=== PATIENT | male | born 1945 | race Caucasian/White ===

== ENCOUNTER 2023-10-29 16:23 | Outpatient (CLI) | payer MEDICARE, BC | END 2023-10-29 23:59 | disposition critical access hospital (66) | LOC: EMS 16:23 | DX: R53.1 Weakness (principal); R20.0 Anesthesia of skin; I49.9 Cardiac arrhythmia, unspecified; Z79.01 Long term (current) use of anticoagulants | CPT/HCPCS: A0425; A0429 ==

== ENCOUNTER 2023-10-29 16:42 | Emergency (ER) | payer MEDICARE, BC ==
--- NOTE | 2023-10-29 16:57 | ED Physician Documentation ---
PD HPI FOCAL NEURO - Stated complaint Stated Complaint: CODE STROKE - Chief complaint Chief Complaint: Neuro - History obtained from History obtained from: Patient, EMS - History of Present Illness Timing - onset: How many hours ago (1) Timing - duration: Hours (1) Timing - details: Abrupt onset Severity of deficit: Severe Weakness: Arm, Left Numbness: No: Face, Arm, Hand, Leg, Foot, Right, Left Associated symptoms: No: Headache, Nausea / vomiting, Seizure, Syncope, Fall, Head injury, Chest pain Baseline status: positive: A&OX3, ambulatory, indep - Additional information Additional information: Patient is a 78-year-old male brought in by EMS today for paralysis of the left arm. He states that he was working outside when he all of a sudden could not move his left arm. This occurred about 3:45 PM. He states that he had a "TIA" at [facility] on September 19 of this year. He states he was started on medication, but does not know what they are. He states that he had an MRI which showed "some spots". He states he had 2 echocardiograms as well. Does not have any headache. No vomiting. No falls. No head injury. 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 Review of Systems Constitutional: denies: Fever, Chills GI: denies: Nausea, Vomiting Skin: denies: Rash Musculoskeletal: denies: Neck pain, Back pain Neurologic: denies: Syncope, Seizure, Confused, Headache, Head injury, LOC PD PAST MEDICAL HISTORY - Past Medical History Past Medical History: Yes Neuro: CVA - Present Medications Home Medications: Ambulatory Orders Medication Instructions Recorded Confirmed Aspirin [Aspirin EC] 81 mg PO DAILY 10/29/23 10/29/23 Atorvastatin [Lipitor] 20 mg PO HS 10/29/23 10/29/23 Clopidogrel [Plavix] 75 mg PO DAILY 10/29/23 10/29/23 - Allergies Allergies/Adverse Reactions: Allergies Allergy/AdvReac Type Severity Reaction Status Date / Time No Known Drug Allergies Allergy Verified 10/29/23 16:59 - Social History Does the pt smoke?: No Smoking Status: Never smoker PD ED PE NORMAL - Vitals Vital signs reviewed: Yes - General General: Alert and oriented X 3, No acute distress, Well developed/nourished - HEENT HEENT: PERRL, Moist mucous membranes - Neck Neck: Supple, no meningeal sign - Cardiac Cardiac: RRR, Strong equal pulses - Respiratory Respiratory: No respiratory distress, Clear bilaterally - Abdomen Abdomen: Soft, Non tender, Non distended - Back Back: No CVA TTP, No spinal TTP - Derm Derm: Warm and dry - Extremities Extremities: No edema, No calf tenderness / cord - Neuro Neuro: Alert and oriented X 3, chief station engineer 2-12 intact, Other (2 out of 5 strength in the left arm. 0 out of 5 abseiling instructor strength. Otherwise normal neuroexam) Eye Opening: Spontaneous Motor: Obeys Commands Verbal: Oriented GCS Score: 15 - Psych Psych: Normal mood, Normal affect NIHSS - Time Time: 16:46 - Level of Consciousness Level of consciousness: (0) Alert, Keenly responsive LOC Questions: (0) Answers both Q's correct LOC Commands: (0) Performs both correctly - Gaze Best Gaze: (0) Normal - Visual Visual: (0) No loss - Facial Palsy Facial Palsy: (0) Normal, symmetrical movement - Motor Arms (both separate) Motor Arm (right): (0) No drift Motor Arm (left): (2) Some effort against gravity - Motor Legs (both separate) Motor Leg (right): (0) No drift Motor Leg (left): (0) No drift - Limb Ataxia Limb Ataxia: (0) Absent - Sensory Sensory: (0) Normal - Best Language Best Language: (0) No aphasia - Dysarthria Dysarthria: (0) Normal - Extinction and Inattention (formally neg Extinction and inattention: (0) No abnormality - Total Score/Results Total Score/Result: 2 Results - Vitals Vitals: Vital Signs - 24 hr 10/29/23 10/29/23 10/29/23 16:41 17:17 17:30 Temperature 36.6 C Heart Rate 41 L 40 L 37 L Respiratory 16 21 16 Rate Blood Pressure 142/79 H 143/68 H 149/73 H O2 Saturation 99 97 98 10/29/23 10/29/23 10/29/23 18:30 18:57 19:31 Temperature Heart Rate 34 L 36 L 40 L Respiratory 20 16 16 Rate Blood Pressure 162/67 H 162/67 H 164/81 H O2 Saturation 98 98 98 Oxygen O2 Source Room air - EKG (time done) 1701 EKG releavant findings:: EKG personally interpreted by author of this note. Relevant findings are: Rate: Rate (enter#) (36) Rhythm: NSR [place]: Normal Intervals: Normal AL QRS: Normal Ischemia: Normal ST segments - Labs Labs: Laboratory Tests 10/29/23 10/29/23 10/29/23 16:44 16:45 16:45 WBC 6.0 RBC 4.34 L Hgb 13.9 L Hct 41.2 L MCV 94.9 H MCH 32.0 H MCHC 33.7 RDW 11.9 L Plt Count 163 MPV 9.1 Neut # (Auto) 4.0 Lymph # (Auto) 1.2 L Chase # (Auto) 0.7 Eos # (Auto) 0.1 Baso # (Auto) 0.0 Absolute Nucleated RBC 0.00 Nucleated RBC % 0.0 PT 13.0 H INR 1.2 APTT 33.6 H Sodium Potassium Chloride Carbon Dioxide Anion Gap BUN Creatinine Estimated GFR (MDRD) Glucose POC Whole Bld Glucose 103 H Calcium Total Bilirubin AST ALT Alkaline Phosphatase Total Protein Albumin Globulin Albumin/Globulin Ratio 10/29/23 16:45 WBC RBC Hgb Hct MCV MCH MCHC RDW Plt Count MPV Neut # (Auto) Lymph # (Auto) Chase # (Auto) Eos # (Auto) Baso # (Auto) Absolute Nucleated RBC Nucleated RBC % PT INR APTT Sodium 137 Potassium 4.1 Chloride 103 Carbon Dioxide 27 Anion Gap 7.0 BUN 22 H Creatinine 1.0 Estimated GFR (MDRD) 72 L Glucose 89 POC Whole Bld Glucose Calcium 9.2 Total Bilirubin 0.6 AST 24 ALT 20 Alkaline Phosphatase 56 Total Protein 6.6 Albumin 4.1 Globulin 2.5 Albumin/Globulin Ratio 1.6 - Rads (name of study) head CT Relevant Findings:: Final report received, See rad report angio head neck Relevant Findings:: Final report received, See rad report brain MRI Relevant Findings:: Final report received, See rad report PD Medical Decision Making - ED course Complexity details: reviewed results, re-evaluated patient, considered differential, d/w patient, d/w family, d/w application consultant (Telestroke) ED course: He states he does not know if he received tPA or not when he was at [facility]. He is on Plavix and aspirin currently. Also on atorvastatin. Patient was activated as a telestroke activation. Consulted with neurology who evaluated the patient. They do recommend tenecteplase. This was given after consenting the patient. Please note the neurologist consented the patient himself. MRI does reveal a mild focus of acute infarction involving the right MCA territory. CT angio of the head and neck do not show any acute abnormality. As we do not accept patients to this hospital that have received tPA or tenecteplase, the patient will be transferred. Discussed the case with Dr. Dodge neurosurgical ICU at [facility] in [place] who accepts in transfer. COBRA forms completed. There was a delay in transfer due to our helicopter that is normally on our helipad being down for maintenance so another helicopter was sent for the patient. Patient states that the cystic structure in the thyroid has "been checked and is noncancerous. He states is being monitored for now. Patient was reassessed at 2027. He is able to move the left hand, does still have reduced abseiling instructor but has definite improved strength. EXAM: [id number] MRI/BRWO ([id number]) PROCEDURE: Brain WO INDICATIONS: L arm weakness TECHNIQUE: Noncontrast axial T1 spin echo, axial T2 fast spin echo, sagittal and axial FLAIR, coronal T2 fast spin echo, axial gradient echo, axial diffusion and ADC through the brain. COMPARISON: Correlation is made with the accompanying imaging. FINDINGS: Image quality: Excellent. CSF Spaces: Basal cisterns are patent. No extra-axial fluid collections. Ventricles are normal in size and shape. Brain: There is a mild degree of abnormal diffusion-weighted signal seen within the right MCA territory, with the largest focus seen posteriorly, as on series 12 images 42 and 43. A small focus, possibly seen anteriorly within the right parietal lobe, as on series 12 image 43. Associated dark signal can be seen on the ADC maps. No definite associated abnormal FLAIR signal can be seen at this time. No findings of hemorrhagic conversion are seen. No intracranial masses or hemorrhage. Lozano/white matter interface is normal. Brainstem appears normal. No chronic ischemic insults. Normal intravascular flow voids are present. Age-appropriate brain parenchymal volume loss and chronic small vessel ischemic change can be seen. Skull and face: Calvarium has normal marrow signal. Orbits appear normal. Sinuses: Sinuses and mastoids are clear. IMPRESSION: Mild foci of acute infarction seen involving the right MCA territory. PROCEDURE: Head W/O Stroke Protocol INDICATIONS: L arm weakness x 1 hour TECHNIQUE: Noncontrast 4.5 mm thick angled axial sections acquired from the foramen magnum to the vertex, with coronal reformats. For radiation dose reduction, the following was used: automated exposure co ntrol, adjustment of mA and/or kV according to patient size. COMPARISON: Correlation is made with the accompanying imaging. FINDINGS: Image quality: There is streak artifact seen through the skull base. CSF spaces: Basal cisterns are patent. No extra-axial fluid collections. Ventricles are normal in size and shape. Brain: No midline shift. No intracranial masses or hemorrhage. Lozano-white matter interface is normal. Symmetric calcification of the basal ganglia can be seen, which is considered to be within normal limits for age. Age-appropriate brain parenchymal volume loss and chronic small vessel ischemic change can be seen. Skull and face: Calvarium and visualized facial bones are intact, without suspicious lesions. Sinuses: Visualized sinuses and mastoids are clear. IMPRESSION: No intracranial hemorrhage is seen. No significant intracranial abnormality is seen. Note: Case discussed by telephone with Dr. Levin at 5:07 PM [place] time on 10/29/2023. This study fulfills neurological imaging criteria for inclusion or exclusion of acute stroke therapies based on available published neurological imaging guidelines. PROCEDURE: Angio Head/Neck INDICATIONS: L arm weaknessx 1 hour TECHNIQUE: After the administration of intravenous contrast, 1 mm thick sections acquired from the aortic arch through the [place] of [place]. 3-dimensional wzmllpd-geczexdva-idyntogquh (MIP) and/or volume rendering reformats were acquired of the central intracranial vasculature and neck separately. For radiation dose reduction, the following was used: automated exposure control, adjustment of mA and/or kV according to patient size. CONTRAST: 80ml omni 300 COMPARISON: Correlation is made with the accompanying imaging. FINDINGS: Image quality: Diagnostic. HEAD CT: CSF Spaces: Basal cisterns are patent. No extra-axial fluid collections. Ventricles are normal in size and shape. Brain: No significant abnormality is seen for scanning technique. Skull and face: Calvarium and visualized facial bones appear intact, without suspicious lesions. Sinuses: Visualized sinuses and mastoids are clear. HEAD CT ANGIOGRAPHY: Anterior circulation: Intracranial internal carotid arteries are normal in size and flow. The flow within the paired anterior cerebral arteries is normal and symmetric. The flow within the middle cerebral arteries is normal and symmetric. The anterior communicating artery is seen. No aneurysms are seen. Posterior circulation: Visualized portions of the vertebral arteries demonstrate normal caliber, and join to form a normal appearing basilar artery. Flow within the posterior cerebral arteries is normal and symmetric. No aneurysms are seen. NECK CT ANGIOGRAPHY: Carotid system: Incidental note is made of a common trunk off of the aorta of the right brachiocephalic artery and the left common carotid artery (bovine type aortic arch). This is considered to be a developmental variant of typically no clinical consequence. The origins of the common carotid arteries appear patent. The common carotid arteries demonstrate normal caliber and courses. The bifurcation regions are both widely patent. The internal carotid arteries demonstrate normal calibers and courses. Posterior circulation: The origins of the vertebral arteries both appear widely patent. The more superior extracranial portions of both vertebral arteries also demonstrate normal courses and calibers. The left vertebral artery is dominant to the right. Soft tissues: Visualized neck soft tissues demonstrate no suspicious abnormalities. There is a cystic lesion involving the right thyroid that measures up to 5 cm craniocaudal. Bones: No suspicious bony lesions. Visualized cervical spine appears normally aligned. Moderate lower cervical spine degenerative change can be seen. IMPRESSION: No significant intracranial arterial abnormality is seen. No significant abnormality is seen within the arteries of the neck. 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
[2023-10-29 16:58] LABS: BASOPHILS % (AUTO) 0.5 %; EOSINOPHILS # (AUTO) 0.1 10^3/uL (0.0-0.7); EOSINOPHILS % (AUTO) 0.8 %; HCT - HEMATOCRIT 41.2 % (42.0-52.0); HGB - HEMOGLOBIN 13.9 g/dL (14.0-18.0); LYMPHOCYTES # (AUTO) 1.2 10^3/uL (1.5-3.5); LYMPHOCYTES % (AUTO) 20.6 %; MEAN CORPUSCULAR HGB CONC 33.7 g/dL (32.0-36.0); MEAN CORPUSCULAR VOLUME 94.9 fL (80.0-94.0); MEAN PLATELET VOLUME 9.1 fL (7.4-11.4); MONOCYTES # (AUTO) 0.7 10^3/uL (0.0-1.0); MONOCYTES % (AUTO) 11.6 %; NEUTROPHILS % (AUTO) 66.2 %; PLT - PLATELET COUNT 163 10^3/uL (130-450); RED BLOOD COUNT 4.34 10^6/uL (4.70-6.10); RED CELL DISTRIBUTION WIDTH 11.9 % (12.0-15.0)
[2023-10-29] MEDS: iohexoL-300 100 ML VIAL IVP ONE (17:06)
[2023-10-29 17:07] LABS: PARTIAL THROMBOPLASTIN TIME 33.6 secs (24.9-33.3)
--- NOTE | 2023-10-29 17:09 | CT Report ---
PROCEDURE: Head W/O Stroke Protocol INDICATIONS: L arm weakness x 1 hour TECHNIQUE: Noncontrast 4.5 mm thick angled axial sections acquired from the foramen magnum to the vertex, with c oronal reformats. For radiation dose reduction, the following was used: automated exposure control, adjustment of mA and/or kV according to patient size. COMPARISON: Correlation is made with the accompanying imaging. FINDINGS: Image quality: There is streak artifact seen through the skull base. CSF spaces: Basal cisterns are patent. No extra-axial fluid collections. Ventricles are normal in size and shape. Brain: No midline shift. No intracranial masses or hemorrhage. Lozano-white matter interface is norm al. Symmetric calcification of the basal ganglia can be seen, which is considered to be within mark anthony l limits for age. Age-appropriate brain parenchymal volume loss and chronic small vessel ischemic c hange can be seen. Skull and face: Calvarium and visualized facial bones are intact, without suspicious lesions. Sinuses: Visualized sinuses and mastoids are clear. IMPRESSION: No intracranial hemorrhage is seen. No significant intracranial abnormality is seen. Note: Case discussed by telephone with Dr. Levin at 5:07 PM [place] time on 10/29/2023. This study fulfills neurological imaging criteria for inclusion or exclusion of acute stroke therapie s based on available published neurological imaging guidelines. Reviewed by: Ciro Carter MD on 10/29/2023 4:07 PM FRIDA Approved by: Ciro Carter MD on 10/29/2023 4:07 PM FRIDA Station ID: [id number]
[2023-10-29 17:12] LABS: INR 1.2 (0.8-1.2)
--- NOTE | 2023-10-29 17:14 | CT Report ---
PROCEDURE: Angio Head/Neck INDICATIONS: L arm weaknessx 1 hour TECHNIQUE: After the administration of intravenous contrast, 1 mm thick sections acquired from the aortic arch t hrough the [place] of [place]. 3-dimensional rlutjcf-bnxxwvjkk-oetvlefyys (MIP) and/or volume renderin g reformats were acquired of the central intracranial vasculature and neck separately. For radiation dose reduction, the following was used: automated exposure control, adjustment of mA and/or kV acco rding to patient size. CONTRAST: 80ml omni 300 COMPARISON: Correlation is made with the accompanying imaging. FINDINGS: Image quality: Diagnostic. HEAD CT: CSF Spaces: Basal cisterns are patent. No extra-axial fluid collections. Ventricles are normal in size and shape. Brain: No significant abnormality is seen for scanning technique. Skull and face: Calvarium and visualized facial bones appear intact, without suspicious lesions. Sinuses: Visualized sinuses and mastoids are clear. HEAD CT ANGIOGRAPHY: Anterior circulation: Intracranial internal carotid arteries are normal in size and flow. The flow within the paired anterior cerebral arteries is normal and symmetric. The flow within the middle cer ebral arteries is normal and symmetric. The anterior communicating artery is seen. No aneurysms are seen. Posterior circulation: Visualized portions of the vertebral arteries demonstrate normal caliber, and join to form a normal appearing basilar artery. Flow within the posterior cerebral arteries is norm al and symmetric. No aneurysms are seen. NECK CT ANGIOGRAPHY: Carotid system: Incidental note is made of a common trunk off of the aorta of the right brachiocepha lic artery and the left common carotid artery (bovine type aortic arch). This is considered to be a d evelopmental variant of typically no clinical consequence. The origins of the common carotid arteri es appear patent. The common carotid arteries demonstrate normal caliber and courses. The bifurcati on regions are both widely patent. The internal carotid arteries demonstrate normal calibers and cou rses. Posterior circulation: The origins of the vertebral arteries both appear widely patent. The more [place] perior extracranial portions of both vertebral arteries also demonstrate normal courses and calibers. The left vertebral artery is dominant to the right. Soft tissues: Visualized neck soft tissues demonstrate no suspicious abnormalities. There is a cyst ic lesion involving the right thyroid that measures up to 5 cm craniocaudal. Bones: No suspicious bony lesions. Visualized cervical spine appears normally aligned. Moderate lo wer cervical spine degenerative change can be seen. IMPRESSION: No significant intracranial arterial abnormality is seen. No significant abnormality is seen within the arteries of the neck. 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
[2023-10-29 17:15] LABS: ALBUMIN 4.1 g/dL (3.2-5.5); ALBUMIN/GLOBULIN RATIO 1.6 (1.0-2.2); BILIRUBIN,TOTAL 0.6 mg/dL (0.2-1.0); CALCIUM 9.2 mg/dL (8.5-10.3); POTASSIUM 4.1 mmol/L (3.5-4.5); TOTAL PROTEIN 6.6 g/dL (6.4-8.9)
[2023-10-29] MEDS: TENECTEPLASE 50 MG/10 ML VIAL IVP STA (17:40)
--- NOTE | 2023-10-29 18:36 | MRI Report ---
PROCEDURE: Brain WO INDICATIONS: L arm weakness TECHNIQUE: Noncontrast axial T1 spin echo, axial T2 fast spin echo, sagittal and axial FLAIR, coronal T2 fast sp in echo, axial gradient echo, axial diffusion and ADC through the brain. COMPARISON: Correlation is made with the accompanying imaging. FINDINGS: Image quality: Excellent. CSF Spaces: Basal cisterns are patent. No extra-axial fluid collections. Ventricles are normal in size and shape. Brain: There is a mild degree of abnormal diffusion-weighted signal seen within the right MCA territ ory, with the largest focus seen posteriorly, as on series 12 images 42 and 43. A small focus, possib ly seen anteriorly within the right parietal lobe, as on series 12 image 43. Associated dark signal c an be seen on the ADC maps. No definite associated abnormal FLAIR signal can be seen at this time. No findings of hemorrhagic conversion are seen. No intracranial masses or hemorrhage. Lozano/white matter interface is normal. Brainstem appears norm al. No chronic ischemic insults. Normal intravascular flow voids are present. Age-appropriate brai n parenchymal volume loss and chronic small vessel ischemic change can be seen. Skull and face: Calvarium has normal marrow signal. Orbits appear normal. Sinuses: Sinuses and mastoids are clear. IMPRESSION: Mild foci of acute infarction seen involving the right MCA territory. Reviewed by: Ciro Carter MD on 10/29/2023 5:34 PM FRIDA Approved by: Ciro Carter MD on 10/29/2023 5:34 PM FRIDA Station ID: [id number]
[2023-10-29 19:09] VITALS: O2SAT 98
[2023-10-29 20:49] VITALS: BP 169/121
== END 2023-10-29 21:03 | disposition short-term general hospital (02) ==
LOC: ED 16:42
DX: I63.9 Cerebral infarction, unspecified (principal); R29.702 NIHSS score 2; R00.1 Bradycardia, unspecified
CPT/HCPCS: 36415; 37195; 70450; 70496; 70498; 70551; 80053; 85025; 85610; 85730; 93005; 99285; J3101; Q9967